=== PATIENT | female | born 1955 | race Caucasian/White ===

== ENCOUNTER 2018-06-11 12:47 | Inpatient (IN) | payer OTHER ==
[~2018-06-11] VITALS: Ht 170.2 cm; Wt 95.7 kg
[~2018-06-11 12:47] MED LIST: CIPRO500 MG PO; COUMADIN5 MG PO; Coumadin,Jantoven PO; Cozaar PO; ENALAPRIL MALEA20 MG PO; FLAGYL500 MG PO; HYDROCODON-ACE1 EAC8 PO; LORTAB 5-325 M1 EACH PO; LOVENOX100 MG/1 M SC; Protonix PO; WARFARIN SODIUM5 MG PO; oxyCODONE PO
[2018-06-11 14:28] LABS: BASOPHIL (%) 0.7 % (0-1); BASOPHIL COUNT 0.1 K/uL (0-0.1); EOSINOPHIL (%) 0.6 % (0-5); EOSINOPHIL COUNT 0.1 K/uL (0-0.3); HEMATOCRIT 41.4 % (36.0-46.0); HEMOGLOBIN 14.1 G/DL (11.9-15.5); IMMATURE GRANULOCYTE (%) 0.2 % (0.0-0.7); LYMPHOCYTE (%) 33.5 % (15-42); LYMPHOCYTE COUNT 2.8 K/uL (1.0-2.8); MCH 33.1 PG (29.0-34.0); MCHC 34.1 G/DL (30.0-36.0); MCV 97.2 FL (83-99); MONOCYTE (%) 8.5 % (3-12); MONOCYTE COUNT 0.7 K/uL (0-0.8); NEUTROPHIL (%) 56.5 % (45-76); NEUTROPHIL COUNT 4.7 K/uL (1.8-6.4); PLATELET COUNT 198 K/uL (156-360); RBC DIS.WIDTH-SD 46.1 % (39-53); RED BLOOD COUNT 4.26 M/uL (3.80-5.20); WHITE BLOOD COUNT 8.3 K/uL (4.1-10.2)
[2018-06-11 14:40] LABS: ALBUMIN 3.9 g/dL (3.2-4.8); CHLORIDE 112 mEq/L (99-109); POTASSIUM 4.9 mEq/L (3.7-5.4); SODIUM 143 mEq/L (136-147)
[2018-06-11 14:42] LABS: GLUCOSE 98 mg/dL (70-99); TOTAL PROTEIN 6.4 g/dL (6.4-8.3)
[2018-06-11 14:44] LABS: TOTAL BILIRUBIN 0.6 mg/dL (0.0-1.0)
[2018-06-11 14:45] LABS: ALKALINE PHOSPHATASE 65 IU/L (3-129)
[2018-06-11 14:46] LABS: CREATININE 0.9 mg/dL (0.6-1.3); GFR ESTIMATE (CALCULATED) > 59 mL/min/
[2018-06-11 14:47] LABS: AST (GOT) 21 IU/L (2-34); UREA NITROGEN (BUN) 11 mg/dL (9-23)
[2018-06-11 14:49] LABS: ALT (GPT) 21 IU/L (3-49)
[2018-06-11 14:50] LABS: TROP-I INTERPRETATION NEGATIVE; TROPONIN-I < 0.01 ng/mL (0.0-0.30)
[2018-06-11 15:21] LABS: D-DIMER ELISA < 150.00 ng/mLDDU (<230)
[2018-06-11] MEDS ORDERED: LOVASTATIN40 MG PO (16:34)
[2018-06-11] MEDS ORDERED: MS CONTIN,ORAMO15 M1 PO (16:35)
[2018-06-11] MEDS ORDERED: NORCO 5/3251 TABLET PO (16:36)
[2018-06-11] MEDS ORDERED: ELIQUIS5 MG PO (16:37)
[2018-06-11] MEDS ORDERED: TOPAMAX100 MG PO (16:38)
[2018-06-11 17:56] VITALS: BP 130/72
[2018-06-11 19:59] VITALS: BP 134/82
[2018-06-12] VITALS (8 sets, daily range): BP systolic 97–139; BP diastolic 53–95
[2018-06-12 11:04] LABS: TROP-I INTERPRETATION NEGATIVE; TROPONIN-I < 0.01 ng/mL (0.0-0.30)
[2018-06-13 03:50] VITALS: BP 117/72
[2018-06-13 07:23] VITALS: BP 114/70
[2018-06-13 12:10] VITALS: BP 123/78
[2018-06-13 15:18] VITALS: BP 142/78
[2018-06-13] MEDS ORDERED: ASPIR-LOW81 MG PO (15:56)
[2018-06-13 19:00] VITALS: BP 135/75
[2018-06-14 03:50] VITALS: BP 109/62
[2018-06-15 00:15] VITALS: BP 119/70
[2018-06-15 04:12] VITALS: BP 104/67
[2018-06-15 08:52] VITALS: BP 122/72
[2018-06-15 09:22] LABS: BASOPHIL (%) 0.5 % (0-1); EOSINOPHIL (%) 1.8 % (0-5); EOSINOPHIL COUNT 0.1 K/uL (0-0.3); HEMATOCRIT 41.5 % (36.0-46.0); HEMOGLOBIN 13.7 G/DL (11.9-15.5); IMMATURE GRANULOCYTE (%) 0.4 % (0.0-0.7); LYMPHOCYTE (%) 38.2 % (15-42); LYMPHOCYTE COUNT 2.2 K/uL (1.0-2.8); MCH 32.6 PG (29.0-34.0); MCV 98.8 FL (83-99); MONOCYTE (%) 8.8 % (3-12); MONOCYTE COUNT 0.5 K/uL (0-0.8); NEUTROPHIL (%) 50.3 % (45-76); NEUTROPHIL COUNT 2.9 K/uL (1.8-6.4); PLATELET COUNT 187 K/uL (156-360); RBC DIS.WIDTH-CV 12.8 % (11.8-14.6); RBC DIS.WIDTH-SD 47.3 % (39-53); WHITE BLOOD COUNT 5.7 K/uL (4.1-10.2)
[2018-06-15 09:48] LABS: CHLORIDE 110 MEQ/L (99-109); CREATININE 0.7 MG/DL (0.6-1.3); GFR ESTIMATE (CALCULATED) > 59 mL/min/; GLUCOSE 129 mg/dL (70-99); SODIUM 141 MEQ/L (136-147); UREA NITROGEN (BUN) 8 mg/dL (9-23)
[2018-06-15 09:49] LABS: POTASSIUM 3.6 MEQ/L (3.7-5.4)
[2018-06-15] MEDS ORDERED: ENTRESTO 24 MG1 EACH PO (11:50)
[2018-06-15] MEDS ORDERED: CARVEDILOL6.25 MG PO (11:50)
[2018-06-15 12:28] VITALS: BP 102/60
== END 2018-06-15 13:16 | disposition home or self-care (01) | DRG 287 ==
LOC: EME 12:47 → EDOF 15:52 → 4SOUTH 15:52 → EDOF 15:52 → ENRESERV 15:56 → EDOF 17:21 → 4SOUTH 17:23
PROVIDERS: Emergency Medicine; Physician Assistant
DX: I42.0 Dilated cardiomyopathy (principal); R07.9 Chest pain, unspecified; I44.7 Left bundle-branch block, unspecified; I10 Essential (primary) hypertension; E78.5 Hyperlipidemia, unspecified; M79.603 Pain in arm, unspecified; R42 Dizziness and giddiness; R06.02 Shortness of breath; Z79.01 Long term (current) use of anticoagulants; Z86.711 Personal history of pulmonary embolism; Z86.718 Personal history of other venous thrombosis and embolism; Z82.49 Family history of ischemic heart disease and other diseases of the circulatory system
CPT/HCPCS: 70450; 71046; 71275; 78452; 80048; 80053; 83880; 84484; 85025; 85379; 93005; 93017; 93306; 94799; 99281; 99285; A9500; C1769; C1887; C1894; G0378; J1644; J2250; J2785; J3010; J7030